=== PATIENT | female | born 1990 | race Caucasian/White ===

== ENCOUNTER → 2020-01-20 | Outpatient (CLI) | payer BC ==
[~2020-01-20] MED LIST: Amoxicillin500 MG PO; MECL25 PO; Zofran Odt4 MG SL
== END | disposition home or self-care (01) ==
LOC: LAB SHORT 15:44 → LAB 15:44
DX: N39.0 Urinary tract infection, site not specified (principal)
CPT/HCPCS: 87077; 87086; 87186

== ENCOUNTER 2020-07-06 15:31 | Emergency (ER) | payer BC ==
[~2020-07-06] VITALS: Ht 160 cm; Wt 104.3 kg
[2020-07-06] MEDS ORDERED: AVIANE-28 TABL1 EACH PO (15:35)
[2020-07-06] MEDS ORDERED: METFORMIN HCL500 M3 PO (15:35)
[2020-07-06] MEDS ORDERED: PANTOPRAZOLE SO40 M2 PO (15:35)
== END 2020-07-06 16:49 | disposition home or self-care (01) ==
LOC: ER 15:31
DX: U07.1 COVID-19 (principal); R05 Cough; R06.02 Shortness of breath; Z79.3 Long term (current) use of hormonal contraceptives; Z79.84 Long term (current) use of oral hypoglycemic drugs; Z79.899 Other long term (current) drug therapy
CPT/HCPCS: 71045; 99285-25

== ENCOUNTER 2022-06-02 11:43 | Emergency (ER) | payer BC ==
[~2022-06-02] VITALS: Ht 160 cm; Wt 108.9 kg
[~2022-06-02 11:43] MED LIST changes: +AVIANE-28 TABL1 EACH PO; +METFORMIN HCL500 M3 PO; +PANTOPRAZOLE SO40 M2 PO
[2022-06-02 12:46] LABS: BASOPHILS ABSOLUTE AUTO 0.02 K/mm3 (0.00-0.23); BASOPHILS PERCENT AUTO 0 % (0-2); EOSINOPHILS ABSOLUTE AUTO 0.05 K/mm3 (0.00-0.68); EOSINOPHILS PERCENT AUTO 1 % (0-6); Hematocrit 43.8 % (33.0-51.0); Hemoglobin 15.1 g/dL (11.5-16.0); IMMATURE GRAN ABSOLUTE AUTO 0.03 K/mm3 (0.00-0.10); IMMATURE GRAN PERCENT AUTO 0 % (0-1); LYMPHOCYTES ABSOLUTE AUTO 0.53 K/mm3 (0.84-5.20); LYMPHOCYTES PERCENT AUTO 6 % (21-46); MONOCYTES PERCENT AUTO 4 % (4-13); Mean Corpuscular HGB 28.1 pg (26.0-34.0); Mean Corpuscular HGB Conc 34.5 g/dL (31.5-36.5); Mean Corpuscular Volume 82 fL (80-100); NEUTROPHILS ABSOLUTE AUTO 8.05 K/mm3 (1.96-9.15); NEUTROPHILS PERCENT AUTO 89 % (41-73); Platelet Count 184 K/mm3 (150-400); RDW Coefficient Variation 13.2 % (11.7-14.2); Red Blood Cell Count 5.37 M/mm3 (3.80-5.20); White Blood Cell Count 9.08 K/mm3 (4.00-11.30)
[2022-06-02 12:53] LABS: Influenza A, PCR NEGATIVE (NEGATIVE); Influenza B, PCR NEGATIVE (NEGATIVE); Resp Syncytial Virus, PCR NEGATIVE (NEGATIVE); SARS-Cov-2 (COVID-19) PCR, MMC NEGATIVE (NEGATIVE)
[2022-06-02 12:55] LABS: Albumin, Blood 3.6 g/dL (3.4-5.0); Albumin/Globulin Ratio 0.9 (0.8-1.8); Bilirubin, Total 1.6 mg/dL (0.1-1.0); Bun/Creatinine Ratio 22.9 (12.0-20.0); Calcium, Blood 9.2 mg/dL (8.5-10.1); Creatinine, Blood 0.65 mg/dL (0.40-1.00); Potassium, Blood 3.8 mmol/L (3.5-5.5); Total Protein, Blood 7.6 g/dL (6.4-8.2)
[2022-06-02 13:11] LABS: Mean Platelet Volume 12.8 fL (9.1-12.4)
[2022-06-02 15:11] LABS: Source, Urine Clean Catch
[2022-06-02 15:19] LABS: Appearance, Urine Clear (Clear); Bilirubin, Urine Neg (Neg); Blood, Urine Neg (Neg); Color, Urine Yellow (P-Yellow); Glucose Qualitative, Urine Neg (Neg); Ketones, Urine 3+ (Neg); Leukocyte Esterase, Urine Neg (Neg); Nitrite, Urine Neg (Neg); Protein, Urine Neg (Neg); Specific Gravity, Urine 1.015 (1.003-1.022); Urobilinogen, Urine NORM (Normal)
== END 2022-06-02 17:12 | disposition home or self-care (01) ==
LOC: ER 11:43
PROVIDERS: Physician Assistant
DX: R10.31 Right lower quadrant pain (principal); Z79.899 Other long term (current) drug therapy; Z79.84 Long term (current) use of oral hypoglycemic drugs; Z20.822 Contact with and (suspected) exposure to COVID-19
CPT/HCPCS: 0241U; 36415; 74176; 80053; 81003; 83690; 84703; 85025; J1885; J2405

== ENCOUNTER → 2024-12-10 | Outpatient (CLI) | payer BC | LOC: LAB 16:51 → LAB SHORT 16:51 | DX: O09.90 Supervision of high risk pregnancy, unspecified, unspecified trimester (principal) | CPT/HCPCS: 87081; 87150 ==

== ENCOUNTER 2025-01-06 08:02 | Inpatient (IN) | payer BC ==
[~2025-01-06 08:02] MED LIST changes: +PRENATAL TABLE1 EAC2 PO
[2025-01-06 08:32] VITALS: BP 111/62
== END 2025-01-06 09:05 | disposition home or self-care (01) | DRG 833 ==
LOC: BC 08:02
PROVIDERS: ADMIT Obstetrics & Gynecology
DX: O32.1XX0 Maternal care for breech presentation, not applicable or unspecified (principal); Z53.9 Procedure and treatment not carried out, unspecified reason
CPT/HCPCS: 36415; 36416; 59025; 99214

== ENCOUNTER 2025-01-20 19:02 | Inpatient (IN) | payer BC ==
[~2025-01-20] VITALS: Ht 160 cm; Wt 114.0 kg
[2025-01-20] MEDS ORDERED: OXYTOCIN/RINGER'S LACTATE 500 ML IV PRN (19:40)
[2025-01-20] MEDS ORDERED: Tranexamic Acid 100 ML IV SCH (19:40)
[2025-01-20] MEDS ORDERED: Methylergonovine Maleate 0.2MG / ML 1ML Amp IM PRN (19:40)
[2025-01-20] MEDS ORDERED: Carboprost Tromethamine 250 MCG/ML 1ML Amp IM PRN (19:40)
[2025-01-20] MEDS ORDERED: Ondansetron HCl 2 MG / ML 2ML Vial IV PRN (19:40)
[2025-01-20] MEDS ORDERED: Oxytocin 10 Unit / ML Vial IM PRN (19:40)
[2025-01-20] MEDS ORDERED: ePHEDrine Sulfate 50 MG/ML 1ML Injection XX PRN (19:50)
[2025-01-20] MEDS ORDERED: FentaNYL Citrate 50 MCG/ML 2 ML Injection IV PRN (19:50)
[2025-01-20] MEDS ORDERED: Penicillin G Potassium 5,000,000 UNITS in NS 250 ML IV ONE (19:50)
[2025-01-20] MEDS ORDERED: FentaNYL 2mcg/ml-Bup 0.1% Epd 250 ML EPI PRN (19:50)
[2025-01-20] MEDS ORDERED: OXYTOCIN/RINGER'S LACTATE 500 ML IV SCH (20:05)
[2025-01-20 21:17] LABS: BASOPHILS ABSOLUTE AUTO 0.03 K/mm3 (0.00-0.23); BASOPHILS PERCENT AUTO 0 % (0-2); EOSINOPHILS ABSOLUTE AUTO 0.14 K/mm3 (0.00-0.68); EOSINOPHILS PERCENT AUTO 1 % (0-6); Hematocrit 32.4 % (33.0-51.0); Hemoglobin 10.5 g/dL (11.5-16.0); IMMATURE GRAN ABSOLUTE AUTO 0.04 K/mm3 (0.00-0.10); IMMATURE GRAN PERCENT AUTO 0 % (0-1); LYMPHOCYTES ABSOLUTE AUTO 2.46 K/mm3 (0.84-5.20); LYMPHOCYTES PERCENT AUTO 20 % (21-46); MONOCYTES ABSOLUTE AUTO 0.89 K/mm3 (0.16-1.47); MONOCYTES PERCENT AUTO 7 % (4-13); Mean Corpuscular HGB Conc 32.4 g/dL (31.5-36.5); Mean Corpuscular Volume 80 fL (80-100); NEUTROPHILS ABSOLUTE AUTO 8.67 K/mm3 (1.96-9.15); NEUTROPHILS PERCENT AUTO 71 % (41-73); NRBC ABSOLUTE 0.00 K/mm3 (0.00-0.02); NRBC Auto 0.0 /100 WBC (0.0-0.2); Platelet Count 172 K/mm3 (150-400); RDW Coefficient Variation 13.6 % (11.7-14.2); RDW Standard Deviation 39.4 fL (35.1-46.3)
[2025-01-20 21:42] VITALS: BP 121/77
[2025-01-20 23:50] VITALS: BP 117/57
[2025-01-21] VITALS (35 sets, daily range): BP systolic 87–141; BP diastolic 49–83
[2025-01-21] MEDS ORDERED: NS 250 ML IV PRN (01:45)
[2025-01-21] MEDS ORDERED: Penicillin G Potassium 5,000,000 UNITS in NS 250 ML IV ONE (06:00)
[2025-01-21] MEDS ORDERED: Penicillin G Potassium 2,500,000 UNITS in Dextrose 5% 100 ML IV SCH ×2 (10:00)
[2025-01-22] VITALS (27 sets, daily range): BP systolic 87–145; BP diastolic 54–130
[2025-01-22] MEDS ORDERED: CeFAZolin Sodium 3,000 MG in NS 100 ML IV SCH (02:20)
[2025-01-22] MEDS ORDERED: Metoclopramide HCl 5MG / ML 2ML Vial IV PRN (02:25)
[2025-01-22] MEDS ORDERED: Citric Acid/Sodium Citrate 30 ML BTL PO PRN (02:25)
[2025-01-22] MEDS ORDERED: FentaNYL Citrate 50 MCG/ML 2 ML Injection ONE (06:42)
[2025-01-22] MEDS ORDERED: Phenylephrine HCl 100 MCG/ML-NS 10MLSYR (1MG/10ML) ONE (06:56)
[2025-01-22] MEDS ORDERED: Oxytocin 10 Unit / ML Vial ONE ×2 (07:05→07:22)
[2025-01-22] MEDS ORDERED: CeFAZolin Sodium 1000 mg Vial ONE (07:18)
[2025-01-22] MEDS ORDERED: Ondansetron HCl 2 MG / ML 2ML Vial ONE (07:25)
--- NOTE | 2025-01-22 07:26 | NUR ---
01/22/25 0726 Scmarilu,Dolly VIABLE MALE INFANT DELIVERED AT 0712 VIA PRIMARY SECTION. APGARS PENDING. CORD BLOOD SENT WITH BABY RN NILE. NO GASES OBTAINED PER DR JERRY ORDERS. SEE OPERATIVE NOTE FOR OPERATIVE DETAILS.
[2025-01-22] MEDS ORDERED: Ketorolac Tromethamine 30mg Vial ONE (07:34)
[2025-01-22] MEDS ORDERED: Carboprost Tromethamine 250 MCG/ML 1ML Amp IM PRN (08:10)
[2025-01-22] MEDS ORDERED: Methylergonovine Maleate 0.2MG / ML 1ML Amp IM PRN (08:15)
[2025-01-22] MEDS ORDERED: Magnesium Hydroxide Conc 10 ML UDC PO PRN (08:15)
[2025-01-22] MEDS ORDERED: Oxymetazoline 0.05% Nasal Relief Spray 15mL BTL PRN (08:20)
[2025-01-22] MEDS ORDERED: Ondansetron HCl 2 MG / ML 2ML Vial IV PRN (08:20)
[2025-01-22] MEDS ORDERED: OXYTOCIN/RINGER'S LACTATE 500 ML IV SCH (08:20)
[2025-01-22] MEDS ORDERED: Ketorolac Tromethamine 30mg Vial IV SCH (09:00)
[2025-01-22] MEDS ORDERED: Prenatal Vit/FE Fumarate/FA 1 Tab PO SCH (09:00)
[2025-01-23 05:42] VITALS: BP 101/55
[2025-01-23 06:22] LABS: BASOPHILS ABSOLUTE AUTO 0.04 K/mm3 (0.00-0.23); BASOPHILS PERCENT AUTO 0 % (0-2); EOSINOPHILS ABSOLUTE AUTO 0.34 K/mm3 (0.00-0.68); EOSINOPHILS PERCENT AUTO 2 % (0-6); Hematocrit 29.2 % (33.0-51.0); Hemoglobin 9.2 g/dL (11.5-16.0); IMMATURE GRAN ABSOLUTE AUTO 0.11 K/mm3 (0.00-0.10); IMMATURE GRAN PERCENT AUTO 1 % (0-1); LYMPHOCYTES ABSOLUTE AUTO 3.11 K/mm3 (0.84-5.20); LYMPHOCYTES PERCENT AUTO 19 % (21-46); MONOCYTES ABSOLUTE AUTO 1.21 K/mm3 (0.16-1.47); MONOCYTES PERCENT AUTO 8 % (4-13); Mean Corpuscular HGB Conc 31.5 g/dL (31.5-36.5); Mean Corpuscular Volume 82 fL (80-100); NEUTROPHILS ABSOLUTE AUTO 11.29 K/mm3 (1.96-9.15); NEUTROPHILS PERCENT AUTO 70 % (41-73); NRBC ABSOLUTE 0.00 K/mm3 (0.00-0.02); NRBC Auto 0.0 /100 WBC (0.0-0.2); Platelet Count 139 K/mm3 (150-400); RDW Coefficient Variation 14.0 % (11.7-14.2); RDW Standard Deviation 41.3 fL (35.1-46.3)
[2025-01-23 07:21] VITALS: BP 111/62
[2025-01-23 11:33] VITALS: BP 99/60
[2025-01-23 16:04] VITALS: BP 96/52
[2025-01-23 20:23] VITALS: BP 113/61
[2025-01-24 00:13] VITALS: BP 104/63
[2025-01-24 03:08] VITALS: BP 108/59
[2025-01-24 08:00] VITALS: BP 117/72
[2025-01-24 10:58] VITALS: BP 122/76
== END 2025-01-24 11:06 | disposition home or self-care (01) | DRG 787 ==
LOC: OBS 19:02 → BC 19:02 → OBS 19:12 → BC 19:14
PROVIDERS: Obstetrics & Gynecology; ADMIT Advanced Practice Midwife
PROC: 3E03329 Introduction of Other Anti-infective into Peripheral Vein, Percutaneous Approach (ICD-10-PCS; 2025-01-20)
PROC: 10D00Z1 Extraction of Products of Conception, Low, Open Approach (ICD-10-PCS; principal; 2025-01-22 07:00)
DX: O48.0 Post-term pregnancy (principal); D62 Acute posthemorrhagic anemia; O99.324 Drug use complicating childbirth; O99.214 Obesity complicating childbirth; O62.1 Secondary uterine inertia; F12.90 Cannabis use, unspecified, uncomplicated; F41.9 Anxiety disorder, unspecified; O99.344 Other mental disorders complicating childbirth; Z3A.41 41 weeks gestation of pregnancy; Z37.0 Single live birth; O99.824 Streptococcus B carrier state complicating childbirth; Z67.31 Type AB blood, Rh negative; O64.9XX0 Obstructed labor due to malposition and malpresentation, unspecified, not applicable or unspecified; O36.8330 Maternal care for abnormalities of the fetal heart rate or rhythm, third trimester, not applicable or unspecified; O34.83 Maternal care for other abnormalities of pelvic organs, third trimester; N83.8 Other noninflammatory disorders of ovary, fallopian tube and broad ligament
CPT/HCPCS: 36415; 76815; 85025; 86850; 86870; 86900; 86901; 86922; A9270; J0456; J0690; J1885; J2371; J2405; J2540; J2590; J3010; J7050; J7120